=== PATIENT | male | born 1965 | race Caucasian/White ===

== ENCOUNTER 2018-06-20 12:51 | Observation (INO) ==
--- NOTE | 2018-06-20 13:24 | ED ---
HPI General Chief Complaint: Chest Pain Stated Complaint: HBP complaint/chest pain Time Seen by Provider: 06/20/18 13:07 Source: patient and RN notes reviewed Mode of arrival: ambulatory Limitations: no limitations History of Present Illness HPI narrative: 52-year-old male presents to the emergency department for evaluation of left-sided chest pain that started approximately 1 month ago, but has been worse in the past 2 weeks. He states it is constant, but worse with exertion, slightly alleviated with rest. He states in the left chest, radiates to the left side and left arm. Current pain is 3/10, dull. He also reports associated fatigue. Patient denies any associated shortness of breath. He has history of depression is on gabapentin. No other medical problems. He does not follow with a drum cleaner. He has no history of cardiac disease. He reports no recent stress test or cardiac catheterization. No recent surgery or travel. No leg edema. No hemoptysis. No history of DVT or PE. Moderate severity. Patient did take aspirin 81 mg this morning. MD complaint: Reports chest pain STEMI Alert: No Onset (ago): month(s) (1) Duration: intermittent Pain location: Reports left chest Severity: moderate Severity scale (1-10): 3 Quality: Reports aching and dull Pain radiation: Reports LUE Relieving factors: rest Exacerbating factors: exertion Context: Denies recent illness, recent surgery, recent immobilization, recent travel, trauma/injury, new medications and history of DVT/PE Associated symptoms: Denies nausea, vomiting, diaphoresis, dyspnea, sense of impending doom, syncope, palpitations, fever, cough and leg swelling Treatments prior to arrival chest pain: Reports aspirin Related Data Allergies Allergy/AdvReac Type Severity Reaction Status Date / Time No Known Allergies Allergy Verified 06/20/18 12:56 Review of Systems ROS: all other systems reviewed are negative PMFSH Medical History Medical History Patient denies medical problems (Acute) Social History Social History Substance History: No History of Abuse Second Hand Smoke Exposure: No Smoking Status: Never smoker How Often Do You Have a Drink Containing Alcohol: Never Recent Travel in [facility] within the Last 8 Weeks: No Recent Out of Country Travel within the Last 8 Weeks: No Immunization History Tetanus Immunization: <5 Years Exam Narrative Exam Narrative: GENERAL: Well-nourished, well-developed male patient, ambulatory. Afebrile SKIN: Focused skin assessment warm/dry. HEAD: Normocephalic. Atraumatic EYES: No scleral icterus. No injection or drainage. NECK: Supple, trachea midline. No JVD or lymphadenopathy. CARDIOVASCULAR: Regular rate and rhythm without murmurs, gallops, or rubs. Bilateral radial and pedal pulses are 2+ RESPIRATORY: Breath sounds equal bilaterally. No accessory muscle use. Lung sounds are clear to auscultation GASTROINTESTINAL: Abdomen soft, non-tender, nondistended. MUSCULOSKELETAL: No cyanosis, or edema. BACK: Nontender without obvious deformity. No CVA tenderness. Course Initial Documented Vital Signs Temperature 97.6 F 06/20/18 12:54 Pulse Rate 84 06/20/18 12:54 Respiratory Rate 20 06/20/18 12:54 Blood Pressure 182/117 H 06/20/18 12:54 Pulse Oximetry 100 06/20/18 12:54 Last Documented Vital Signs Temperature 97.6 F 06/20/18 12:54 Pulse Rate 82 06/20/18 13:08 Respiratory Rate 17 06/20/18 13:08 Blood Pressure 165/85 H 06/20/18 13:08 Pulse Oximetry 100 06/20/18 13:08 Medical Decision Making CORY Attestation CORY supervised visit: Yes Attestation: I, Dr. Ye, have reviewed the advance practice practitioner's documentation and am in agreement, met with the patient face to face, made the diagnosis, and the medical decision making was done by me. See her note for further details. This is a 52-year-old male with significant family history of cardiac disease who presents for evaluation of intermittent episodes of chest pain, palpitations , as well as notably elevated blood pressure today. Patient did have chest pain today, however states that after receiving sublingual nitroglycerin, not only did his blood pressure improved, but his chest pain improved. On my assessment the patient is resting comfortably and is in no acute distress. He denies paresthesias or motor deficits. No dyspnea. Vital signs are within normal limits. Distal pulses are brisk and equal bilaterally. His EKG shows no signs of ischemia. Chest x-ray shows no acute cardia pulmonary disease. Basic labs are unremarkable. Cardiac enzymes are negative. He will be admitted to the chest pain center for further cardiac evaluation. He is amenable to this plan. MDM Narrative Medical decision making narrative: 52-year-old male presents to the emergency department for evaluation of left-sided chest pain, onset 1 month ago. EKG shows sinus rhythm, heart rate 82, no acute ST changes. CBC, CMP, magnesium, CK , troponin, PTT, PT/INR, chest x-ray ordered and pending. Patient is given second aspirin 81 mg p.o. and nitro 0.4 mg sublingually. CBC shows no acute abnormality. CMP shows no acute abnormalities. Magnesium is 2.1. CK is 64. Troponin is less than 0.02. PTT is 28.2. PT/INR is 10.1/ 1.0. Chest x-ray is negative for acute process. Patient will be admitted to the chest pain center for further evaluation and workup. Medical Screen Exam Complete: Yes Emergency Medical Condition: Yes Differential Diagnosis Differential Diagnosis: ACS versus angina versus pneumonia versus pneumothorax versus muscle strain Lab Data Result diagrams: 06/20/18 13:15 06/20/18 13:15 Lab Results 06/20/18 06/20/18 06/20/18 Range/Units 13:15 13:15 13:15 WBC 5.3 (4.0-11.0) th/mm3 RBC 5.06 (4.50-5.90) mil/mm3 Hgb 16.2 (13.0-17.0) gm/dL Hct 47.7 (39.0-51.0) % MCV 94.3 (80.0-100.0) fL MCH 32.0 (27.0-34.0) pg MCHC 33.9 (32.0-36.0) % RDW 13.4 (11.6-17.2) % Plt Count 250 (150-450) th/mm3 MPV 8.5 (7.0-11.0) fL Neut % (Auto) 64.2 (16.0-70.0) % Lymph % (Auto) 23.9 (9.0-44.0) % [place] % (Auto) 11.1 H (0.0-8.0) % Eos % (Auto) 0.5 (0.0-4.0) % Baso % (Auto) 0.3 (0.0-2.0) % Neut # (Auto) 3.4 (1.8-7.7) th/mm3 Lymph # (Auto) 1.3 (1.0-4.8) th/mm3 [place] # (Auto) 0.6 (0.0-0.9) th/mm3 Eos # (Auto) 0.0 (0.0-0.4) th/mm3 Baso # (Auto) 0.0 (0.0-0.2) th/mm3 WBC Differential . Differential Comment Auto diff final PT 10.1 (9.8-11.6) sec INR 1.0 Ratio APTT 28.2 (23.4-31.7) sec Sodium 140 (136-145) meq/L Potassium 3.7 (3.5-5.1) meq/L Chloride 103 (98-107) meq/L Carbon Dioxide 28.8 (21.0-32.0) meq/L Anion Gap 8 (5-15) meq/L BUN 10 (7-18) mg/dL Creatinine 1.09 (0.60-1.30) mg/dL Estimated GFR 71 L (>89) mL/min Random Glucose 96 (74-106) mg/dL Calcium 8.8 (8.5-10.1) mg/dL Magnesium (1.5-2.5) mg/dL Total Bilirubin 0.3 (0.2-1.0) mg/dL AST 20 (15-37) U/L ALT 27 (12-78) U/L Alkaline Phosphatase 83 (45-117) U/L Total Creatine Kinase (39-308) U/L Troponin I Less than 0.02 L (0.02-0.05) ng/mL Total Protein 7.7 (6.4-8.2) g/dL Albumin 4.3 (3.4-5.0) g/dL //18 Range/Units 13:15 WBC (4.0-11.0) th/mm3 RBC (4.50-5.90) mil/mm3 Hgb (13.0-17.0) gm/dL Hct (39.0-51.0) % MCV (80.0-100.0) fL MCH (27.0-34.0) pg MCHC (32.0-36.0) % RDW (11.6-17.2) % Plt Count (150-450) th/mm3 MPV (7.0-11.0) fL Neut % (Auto) (16.0-70.0) % Lymph % (Auto) (9.0-44.0) % [place] % (Auto) (0.0-8.0) % Eos % (Auto) (0.0-4.0) % Baso % (Auto) (0.0-2.0) % Neut # (Auto) (1.8-7.7) th/mm3 Lymph # (Auto) (1.0-4.8) th/mm3 [place] # (Auto) (0.0-0.9) th/mm3 Eos # (Auto) (0.0-0.4) th/mm3 Baso # (Auto) (0.0-0.2) th/mm3 WBC Differential Differential Comment PT (9.8-11.6) sec INR Ratio APTT (23.4-31.7) sec Sodium (136-145) meq/L Potassium (3.5-5.1) meq/L Chloride (98-107) meq/L Carbon Dioxide (21.0-32.0) meq/L Anion Gap (5-15) meq/L BUN (7-18) mg/dL Creatinine (0.60-1.30) mg/dL Estimated GFR (>89) mL/min Random Glucose (74-106) mg/dL Calcium (8.5-10.1) mg/dL Magnesium 2.1 (1.5-2.5) mg/dL Total Bilirubin (0.2-1.0) mg/dL AST (15-37) U/L ALT (12-78) U/L Alkaline Phosphatase (45-117) U/L Total Creatine Kinase 64 (39-308) U/L Troponin I (0.02-0.05) ng/mL Total Protein (6.4-8.2) g/dL Albumin (3.4-5.0) g/dL Imaging Data Radiologist's impression: Chest X-Ray 06/20/18 13:17 CONCLUSION: Negative for acute process Discharge Plan Discharge Disposition Patient Disposition: ED Admit(ED Internal Use Only) Discharge Order Discharge Orders: ED Use Only Admit Order (Routine); Ordered 06/20/18 Ordered By: Claire Martinez Discharge Details Diagnosis: Chest pain Physicians Team ED Provider: Shayan Ye ED Midlevel Provider: Claire Martinez Primary Care Provider: Primary Care Lsia Angel Attending Provider: Juanito Han Status ED Status: Admitted Observation Patient
[2018-06-20 13:52] LABS: Baso % (Auto) 0.3 % (0.0-2.0); Eos % (Auto) 0.5 % (0.0-4.0); Hematocrit 47.7 % (39.0-51.0); Hemoglobin 16.2 gm/dL (13.0-17.0); Lymph # (Auto) 1.3 th/mm3 (1.0-4.8); Lymph % (Auto) 23.9 % (9.0-44.0); Mean Corpuscular HGB Conc 33.9 % (32.0-36.0); Mean Corpuscular Volume 94.3 fL (80.0-100.0); Mean Platelet Volume 8.5 fL (7.0-11.0); Mono # (Auto) 0.6 th/mm3 (0.0-0.9); Mono % (Auto) 11.1 % (0.0-8.0); Neut # (Auto) 3.4 th/mm3 (1.8-7.7); Neut % (Auto) 64.2 % (16.0-70.0); Platelet Count 250 th/mm3 (150-450); Red Blood Count 5.06 mil/mm3 (4.50-5.90); Red Cell Distribution Width 13.4 % (11.6-17.2); White Blood Count 5.3 th/mm3 (4.0-11.0)
[2018-06-20 14:00] LABS: Albumin 4.3 g/dL (3.4-5.0); Anion Gap 8 meq/L (5-15); Aspartate Aminotransferase 20 U/L (15-37); Blood Urea Nitrogen 10 mg/dL (7-18); Calcium 8.8 mg/dL (8.5-10.1); Carbon Dioxide 28.8 meq/L (21.0-32.0); Chloride 103 meq/L (98-107); Glomerular Filtration Rate 71 mL/min (>89); Glucose,Random 96 mg/dL (74-106); Potassium 3.7 meq/L (3.5-5.1); Sodium 140 meq/L (136-145)
[2018-06-20 14:01] LABS: Activated Partial Thrombo Time 28.2 sec (23.4-31.7); Alanine Aminotransferase 27 U/L (12-78); Magnesium 2.1 mg/dL (1.5-2.5)
--- NOTE | 2018-06-20 14:01 | XR ---
EXAM DATE: 06/20/2018 1:55 PM EST AGE/SEX: 52 years / Male INDICATIONS: Left side chest pain. CLINICAL DATA: This is the patient's initial encounter. Patient reports that signs and symptoms have been present for 1 month and indicates a pain score of 3/10. MEDICAL/SURGICAL HISTORY: None. None. COMPARISON: No prior exams available for comparison. FINDINGS: A single AP view of the chest demonstrates the lungs to be symmetrically aerated without evidence of mass, infiltrate or effusion. The cardiomediastinal contours are unremarkable. Osseous structures a re intact. CONCLUSION: Negative for acute process Electronically signed by: Missael Escobar MD Board Certified Radiologist 06/20/2018 2:00 PM EST
[2018-06-20 14:02] LABS: Prothrombin Time 10.1 sec (9.8-11.6)
[2018-06-20 14:03] LABS: Alkaline Phosphatase 83 U/L (45-117); Total Protein 7.7 g/dL (6.4-8.2)
--- NOTE | 2018-06-20 15:29 | P.HPCA ---
History of Present Illness Primary Care Physician: No Primary Care Physician Chief Complaint: Chest pain History of Present Illness: 52 year old male without significant medical history presents to ER for further evaluation of exertional chest pain. Onset few months. Reporting episodes are becoming more frequent and intense over the last 2 weeks. Location left anterior chest with radiation to left shoulder. Characterized as a tight, squeezing sensation. Associated symptoms include dyspnea. No associated symptoms of nausea, vomiting, or diaphoresis. Precipitating factors seem to be related to exertion. Duration often last hours, sometimes lasting all day. No relieving factors. No recent illness, fever, or injury. A family member encouraged him to go to local [place] station to have blood pressure checked. Reports blood pressure taken by EMT was 220/100 and was encouraged to go to ER for further evaluation. Past cardiac testing None Social history No known hypertension, hyperlipidemia, or diabetes. Lifelong non-smoker. No alcohol or recreational drug use. Family history Noncontributory for early onset cardiovascular disease. Brother required valve replacement due to endocarditis. Father age 49 cerebral aneurysm - Diagnosis (1) Chest pain of uncertain etiology (2) Hypertension (3) History of depression Review of Systems All other systems reviewed negative except as stated in HPI PMFSH - History History Provided By: Patient - Medical History Medical History: Medical History (Last Reviewed 06/20/18 @ 15:23 by COREY Lomas) Patient denies medical problems - Family History Family History: Family History (Last Updated 06/20/18 @ 15:23 by COREY Lomas) Other Cerebral aneurysm Endocarditis - Social History I have reviewed the patient's Social History: Yes - Tobacco History Second Hand Smoke Exposure: No Tobacco Use In Past 30 Days: No Smoking Status: Never smoker - Alcohol History How Often Do You Have a Drink Containing Alcohol: Never - Substance Use History Substance History: No History of Abuse - Travel History History of Recent Travel: No Recent Travel in the [place] Within the Last 8 Weeks: No Recent Travel Out of the Country Within the Last 8 Weeks: No - Immunization History Tetanus Immunization: <5 Years Medications and Allergies Active Medications: Active Medications Sodium Chloride (Ns Flush) 2 ml IV.FLUSH UNSCH PRN PRN Reason: FLUSH AFTER USING IV ACCESS Allergies Allergy/AdvReac Type Severity Reaction Status Date / Time No Known Allergies Allergy Verified 06/20/18 12:56 Home Medications Medication Instructions Recorded Confirmed Type aspirin 81 mg PO BID 06/20/18 06/20/18 History gabapentin 300 mg PO BID 06/20/18 06/20/18 History Exam Vital signs: Vital Signs 06/20/18 12:54 06/20/18 13:08 06/20/18 14:39 Temperature 97.6 F Pulse Rate 84 82 63 Respiratory Rate 20 17 18 Blood Pressure 182/117 H 165/85 H 129/67 Pulse Oximetry 100 100 100 Intake & Output 06/19/18 06/20/18 06/20/18 18:59 06:59 18:59 Weight 92.986 kg Narrative: GENERAL: Alert WN, WD, NAD, pleasant, male HEAD: NC, AT EYES: Sclera clear, conjunctiva without injection, pupils equal and round ENT: Mucous membranes pink and moist NECK: Supple, no masses, trachea midline CV: RRR, without murmur, rub, gallop, no JVD. RESP: Clear lungs throughout bilateral, no crackles, wheeze, rhonchi, symmetrical chest rise, nonlabored, able to speak in full sentences ABD: Soft, NT, ND, no masses, positive bowel tones EXT: Pulses +2x4, no dependent edema MS: Normal tone x4 extremities, nontender, no obvious deformities, full range of motion NEURO: Motor strength 5/5 PSYCH: A+O x3, flat affect, appropriate speech, mildly anxious mood, appropriate insight and judgment SKIN: Normal turgor, normal texture, no lesions, no rashes Results 06/20/18 13:15 06/20/18 13:15 Cardiac Enzymes 06/20/18 Range/Units 13:15 AST 20 (15-37) U/L Troponin I Less than 0.02 L (0.02-0.05) ng/mL Coagulation 06/20/18 Range/Units 13:15 PT 10.1 (9.8-11.6) sec APTT 28.2 (23.4-31.7) sec CBC 06/20/18 Range/Units 13:15 WBC 5.3 (4.0-11.0) th/mm3 RBC 5.06 (4.50-5.90) mil/mm3 Hgb 16.2 (13.0-17.0) gm/dL Hct 47.7 (39.0-51.0) % Plt Count 250 (150-450) th/mm3 Neut # (Auto) 3.4 (1.8-7.7) th/mm3 Lymph # (Auto) 1.3 (1.0-4.8) th/mm3 [place] # (Auto) 0.6 (0.0-0.9) th/mm3 Eos # (Auto) 0.0 (0.0-0.4) th/mm3 Baso # (Auto) 0.0 (0.0-0.2) th/mm3 Comprehensive Metabolic Panel 06/20/18 Range/Units 13:15 Sodium 140 (136-145) meq/L Potassium 3.7 (3.5-5.1) meq/L Chloride 103 (98-107) meq/L Carbon Dioxide 28.8 (21.0-32.0) meq/L BUN 10 (7-18) mg/dL Creatinine 1.09 (0.60-1.30) mg/dL Calcium 8.8 (8.5-10.1) mg/dL AST 20 (15-37) U/L ALT 27 (12-78) U/L Alkaline Phosphatase 83 (45-117) U/L Total Protein 7.7 (6.4-8.2) g/dL Albumin 4.3 (3.4-5.0) g/dL Intake and Output 06/20/18 06/20/18 06/20/18 06:59 14:59 22:59 Other: Weight 92.986 kg Patient Weight 06/21/18 06:59 Weight 92.986 kg - Imaging and Cardiology Imaging: Impressions Chest X-Ray 06/20/18 13:17 CONCLUSION: Negative for acute process EKG interpretations - EKG EKG results cardiology: sinus rhythm, normal axis, normal QRS, normal ST/T Caprini VTE Risk Assessment Caprini VTE Risk Assessment: No/Low Risk (score <= 1) Caprini Risk Assessment Model: Point Value = 1 Point Value = 2 Point Value = 3 Point Value = 5 Age 41-60 Minor surgery BMI > 25 kg/m2 Swollen legs Varicose veins or History of unexplained or recurrent spontaneous Oral contraceptives or hormone replacement Sepsis (< 1 month) Serious lung disease, including pneumonia (< 1 month) Abnormal pulmonary function Acute myocardial infarction Congestive heart failure (< 1 month) History of inflammatory bowel disease Medical patient at bed rest Age 61-74 Arthroscopic surgery Major open surgery (> 45 min) Laparoscopic surgery (> 45 min) Malignancy Confined to bed (> 72 hours) Immobilizing plaster cast Central venous access Age >= 75 History of VTE Family history of VTE Factor V Leiden Prothrombin [id number] Lupus anticoagulant Anticardiolipin antibodies Elevated serum homocysteine Heparin-induced thrombocytopenia Other congenital or acquired thrombophilia Stroke (< 1 month) Elective arthroplasty Hip, pelvis, or leg fracture Acute spinal cord injury (< 1 month) Prophylaxis Regimen: Total Risk Factor Score Risk Level Prophylaxis Regimen 0-1 Low Early ambulation 2 Moderate Order ONE of the following: *Sequential Compression Device (SCD) *Heparin 5000 units SQ BID 3-4 Higher Order ONE of the following medications: *Heparin 5000 units SQ TID *Enoxaparin/Lovenox 40 mg SQ daily (WT < 150 kg, CrCl > 30 mL/min) *Enoxaparin/Lovenox 30 mg SQ daily (WT < 150 kg, CrCl > 10-29 mL/min) *Enoxaparin/Lovenox 30 mg SQ BID (WT < 150 kg, CrCl > 30 mL/min) AND/OR *Sequential Compression Device (SCD) 5 or more Highest Order ONE of the following medications: *Heparin 5000 units SQ TID (Preferred with Epidurals) *Enoxaparin/Lovenox 40 mg SQ daily (WT < 150 kg, CrCl > 30 mL/min) *Enoxaparin/Lovenox 30 mg SQ daily (WT < 150 kg, CrCl > 10-29 mL/min) *Enoxaparin/Lovenox 30 mg SQ BID (WT < 150 kg, CrCl > 30 mL/min) AND *Sequential Compression Device (SCD) Assessment and Plan - Assessment (1) Chest pain of uncertain etiology Code(s): R07.89 - Other chest pain Status: Acute Plan: Admitted chest pain center. Seen and evaluated by Dr. Juanito Han. Rule out ACS with 2 sets of EKGs and cardiac enzymes followed by exercise cardiac testing. (2) Hypertension Code(s): I10 - Essential (primary) hypertension Status: Acute Plan: First two admission blood pressure moderately elevated, blood pressure since normalized. Continue to monitor. (3) History of depression Code(s): Z86.59 - Personal history of other mental and behavioral disorders Status: Chronic Plan: Continue gabapentin. (2) Hypertension Qualifiers: Hypertension type: unspecified Qualified Code(s): I10 - Essential (primary) hypertension
[2018-06-20 17:54] LABS: Creatine Kinase 70 U/L (39-308)
[2018-06-20] MEDS: Acetaminophen 500 MG Tablet PO PRN (21:06)
[2018-06-20] MEDS: Gabapentin 300 MG Capsule PO SCH (21:06)
--- NOTE | 2018-06-21 08:08 | P.PNCA ---
Subjective Interval history: No further chest pain episode. Offers no complaints. Medications and Allergies Active Medications: Active Medications Acetaminophen (Tylenol) 500 mg PO Q4H PRN PRN Reason: HEADACHE Last Admin: 06/20/18 21:06 Dose: 500 mg Gabapentin (Neurontin) 300 mg PO BID [facility] Last Admin: 06/20/18 21:06 Dose: 300 mg Nitroglycerin (Nitrostat Sl) 0.4 mg SL Q5M PRN PRN Reason: CHEST PAIN Ondansetron HCl (Zofran Inj) 4 mg IV.PUSH Q6H PRN PRN Reason: NAUSEA Sodium Chloride (Ns Flush) 2 ml IV.FLUSH BID [facility] Last Admin: 06/20/18 21:07 Dose: 2 ml Sodium Chloride (Ns Flush) 2 ml IV.FLUSH PRN PRN PRN Reason: FLUSH AFTER USING IV ACCESS Allergies Allergy/AdvReac Type Severity Reaction Status Date / Time No Known Allergies Allergy Verified 06/20/18 12:56 Home Medications Medication Instructions Recorded Confirmed Type aspirin 81 mg PO BID 06/20/18 06/20/18 History gabapentin 300 mg PO BID 06/20/18 06/20/18 History Physical Exam Vital signs: Vital Signs 06/20/18 12:54 06/20/18 13:08 06/20/18 13:17 Temperature 97.6 F Pulse Rate 84 82 Respiratory Rate 20 17 Blood Pressure 182/117 H 165/85 H Pulse Oximetry 100 100 100 06/20/18 14:39 06/20/18 15:45 06/20/18 16:00 Temperature 97.6 F Pulse Rate 63 75 63 Respiratory Rate 18 17 16 Blood Pressure 129/67 128/63 120/71 Pulse Oximetry 100 100 100 06/20/18 20:00 06/20/18 23:59 06/21/18 04:00 Temperature 96.8 F L 98.7 F 98.5 F Pulse Rate 64 58 L 58 L Respiratory Rate 18 18 18 Blood Pressure 110/73 112/60 113/61 Pulse Oximetry 100 100 96 06/21/18 07:58 Temperature Pulse Rate Respiratory Rate Blood Pressure Pulse Oximetry 99 Intake & Output 06/20/18 06/21/18 06/21/18 18:59 06:59 18:59 Intake Total 480 / 480 Balance 480 / 480 Weight 92.986 kg 92.3 kg Intake: Oral 480 / 480 Other: # Voids 3 Weight On Admission 92.986 kg - Constitutional no acute distress - Routine HEENT Exam Head: Present: normocephalic, atraumatic (old traumatic injury age 15, sc) ENT: Present: mucous membranes moist - Routine Chest/Breast/Axilla Exam Chest wall: Absent: tenderness - Routine Respiratory Exam Present: CTA bilaterally. Absent: rales, rhonchi, wheezes, crackles - Routine Cardiovascular Exam Present: RRR. Absent: murmur, gallop, rubs - Routine Abdominal Exam Present: soft, normoactive bowel sounds - Routine Skin Exam Present: intact - Routine Neurological Exam Present: alert, oriented X3 Results 06/20/18 13:15 06/20/18 13:15 Cardiac Enzymes 06/20/18 06/20/18 06/20/18 Range/Units 13:15 16:46 20:15 AST 20 (15-37) U/L Troponin I Less than 0.02 L Less than 0.02 L Less than 0.02 L (0.02-0.05) ng/mL Coagulation 06/20/18 Range/Units 13:15 PT 10.1 (9.8-11.6) sec APTT 28.2 (23.4-31.7) sec CBC 06/20/18 Range/Units 13:15 WBC 5.3 (4.0-11.0) th/mm3 RBC 5.06 (4.50-5.90) mil/mm3 Hgb 16.2 (13.0-17.0) gm/dL Hct 47.7 (39.0-51.0) % Plt Count 250 (150-450) th/mm3 Neut # (Auto) 3.4 (1.8-7.7) th/mm3 Lymph # (Auto) 1.3 (1.0-4.8) th/mm3 [place] # (Auto) 0.6 (0.0-0.9) th/mm3 Eos # (Auto) 0.0 (0.0-0.4) th/mm3 Baso # (Auto) 0.0 (0.0-0.2) th/mm3 Comprehensive Metabolic Panel 06/20/18 Range/Units 13:15 Sodium 140 (136-145) meq/L Potassium 3.7 (3.5-5.1) meq/L Chloride 103 (98-107) meq/L Carbon Dioxide 28.8 (21.0-32.0) meq/L BUN 10 (7-18) mg/dL Creatinine 1.09 (0.60-1.30) mg/dL Calcium 8.8 (8.5-10.1) mg/dL AST 20 (15-37) U/L ALT 27 (12-78) U/L Alkaline Phosphatase 83 (45-117) U/L Total Protein 7.7 (6.4-8.2) g/dL Albumin 4.3 (3.4-5.0) g/dL Intake and Output 06/20/18 06/21/18 06/21/18 22:59 06:59 14:59 Intake Total 480 / 480 Balance 480 / 480 Intake: Oral 480 / 480 Other: # Voids 3 Weight 92.986 kg 92.3 kg Weight On Admission 92.986 kg - Imaging and Cardiology Imaging: Impressions Chest X-Ray 06/20/18 13:17 CONCLUSION: Negative for acute process Assessment and Plan - Assessment (1) Chest pain of uncertain etiology Code(s): R07.89 - Other chest pain Status: Acute Plan: Monitored on telemetry overnight. Awaiting cardio input due to concerning chest discomfort during exercise cardiac testing. Instructed to remain NPO until seen by global compensation manager drain technician. (2) Hypertension Code(s): I10 - Essential (primary) hypertension Status: Acute Plan: No further elevated blood pressures since admission. Continue to monitor. (3) History of depression Code(s): Z86.59 - Personal history of other mental and behavioral disorders Status: Chronic Plan: Continue gabapentin. (2) Hypertension Qualifiers: Hypertension type: unspecified Qualified Code(s): I10 - Essential (primary) hypertension
[2018-06-21 09:24] LABS: Chol/HDL Ratio 3.55 Ratio; HDL Cholesterol 48.9 mg/dL (40.0-60.0)
[2018-06-21] MEDS: Gabapentin 300 MG Capsule PO SCH ×2 (09:59→22:17)
[2018-06-21] MEDS: Acetaminophen 500 MG Tablet PO PRN (09:59)
--- NOTE | 2018-06-21 10:28 | ECG ---
Date Performed: 06/20/2018 Time Performed: 13:11:52 PTAGE: 52 years EKG: Sinus rhythm POSSIBLE RIGHT VENTRICULAR CONDUCTION DELAY BORDERLINE ECG NO PREVIOUS TRACING DOCTOR: Juanito Han Interpretating Date/Time 06/21/2018 10:27:20
--- NOTE | 2018-06-21 12:09 | ECG ---
Date Performed: 06/20/2018 Time Performed: 20:55:25 PTAGE: 52 years EKG: SINUS BRADYCARDIA NONSPECIFIC T-WAVE ABNORMALITY BORDERLINE ECG No significant change NO PREVIOUS TRACING DOCTOR: Michael Whitlock Interpretating Date/Time 06/21/2018 12:07:28
--- NOTE | 2018-06-21 12:09 | ECG ---
Date Performed: 06/20/2018 Time Performed: 17:31:08 PTAGE: 52 years EKG: SINUS BRADYCARDIA INCOMPLETE RIGHT BUNDLE BRANCH BLOCK NONSPECIFIC T-WAVE ABNORMALITY ANNADE KENNETH ECG No significant change PREVIOUS TRACING : 06/20/2018 13.11 DOCTOR: Michael Whitlock Interpretating Date/Time 06/21/2018 12:08:26
--- NOTE | 2018-06-21 12:10 | TR ---
Date Performed: 06/20/2018 Time Performed: 18:13:39 DOCTOR: Michael Whitlock DRUG LIST: CLINICAL HISTORY: CHEST PAIN REASON FOR TEST: Chest pain REASON FOR ENDING: OBSERVATION: CONCLUSION: Ford protocol attempted, stopped sec to reported reprod chest discomfort combined w ith anterior lateral t wave inversion during chest discomfort. Suboptimal testing. Chest discomfort r esolved within 2 minutes into recovery. T wave inversion resolved within 1 minute into recovery. COMMENTS: Questionably positive test, further evaluation recommended
--- NOTE | 2018-06-21 14:04 | P.CONIM ---
History of Present Illness Primary Care Provider: No Primary Care Physician Did at the bedside. Events leading to hospitalization reviewed in detail. Currently patient denies active chest pain but does say over the last few months he has been experiencing left-sided chest pain similar to pressure on his chest on and off. No palpitations at this moment, no loss of consciousness. No diaphoresis endorsed at the time of evaluation. Symptoms are exacerbated by exertion. Patient with treadmill test at which point symptoms were reproduced. Review of Systems Review of Systems: all other systems reviewed are negative [facility] Medical History Medical History Patient denies medical problems (Acute) Family History Family History Father Cerebral aneurysm Brother Endocarditis Social History Social History Substance History: No History of Abuse Second Hand Smoke Exposure: No Smoking Status: Never smoker How Often Do You Have a Drink Containing Alcohol: Never Hx Recent Travel: No Recent Travel in [facility] within the Last 8 Weeks: No Recent Out of Country Travel within the Last 8 Weeks: No Immunization History Tetanus Immunization: <5 Years Hx Influenza Vaccine This Season: No Medications and Allergies Allergies Allergy/AdvReac Type Severity Reaction Status Date / Time No Known Allergies Allergy Verified 06/20/18 12:56 Home Medications Medication Instructions Recorded Confirmed Type aspirin 81 mg PO BID 06/20/18 06/20/18 History gabapentin 300 mg PO BID 06/20/18 06/20/18 History Active Medications: Active Medications Acetaminophen (Tylenol) 500 mg PO Q4H PRN PRN Reason: HEADACHE Last Admin: 06/21/18 09:59 Dose: 500 mg Gabapentin (Neurontin) 300 mg PO BID [facility] Last Admin: 06/21/18 09:59 Dose: 300 mg Nitroglycerin (Nitrostat Sl) 0.4 mg SL Q5M PRN PRN Reason: CHEST PAIN Ondansetron HCl (Zofran Inj) 4 mg IV.PUSH Q6H PRN PRN Reason: NAUSEA Sodium Chloride (Ns Flush) 2 ml IV.FLUSH BID [facility] Last Admin: 06/21/18 09:59 Dose: 2 ml Sodium Chloride (Ns Flush) 2 ml IV.FLUSH PRN PRN PRN Reason: FLUSH AFTER USING IV ACCESS Physical Exam Vital signs: Last Vital Signs Temp 98.2 F 06/21/18 12:00 Pulse 69 06/21/18 12:00 Resp 16 06/21/18 12:00 BP 126/81 06/21/18 12:00 Pulse Ox 92 L 06/21/18 12:00 Intake & Output 06/19/18 06/20/18 06/21/18 06/22/18 06:59 06:59 06:59 06:59 Intake Total 480 / 480 Balance 480 / 480 Weight 92.3 kg general: No acute distress, conversational HEENT: EOMI Cardiovascular: S1/S2. No murmur rub or gallop noted Respiratory: Clear to auscultation anteriorly and posteriorly Gastrointestinal: Soft, nontender, nondistended, no guarding or rebound Extremity: No lower extremity edema or calf tenderness Results Labs CBC & Chem 7: 06/20/18 13:15 06/20/18 13:15 Imaging Impressions Chest X-Ray 06/20/18 13:17 CONCLUSION: Negative for acute process ABG Impressions Chest X-Ray 06/20/18 13:17 CONCLUSION: Negative for acute process Assessment and Plan (1) Chest pain of uncertain etiology: Code(s): R07.89 - Other chest pain Status: Acute (2) Hypertension: Code(s): I10 - Essential (primary) hypertension Status: Acute (3) History of depression: Code(s): Z86.59 - Personal history of other mental and behavioral disorders Status: Chronic (4) Unstable angina: Code(s): I20.0 - Unstable angina Status: Acute Plan Patient is a young 52-year-old male with no significant past medical history presenting with exertional chest pain with T wave changes on treadmill testing concerning for unstable angina Cardiology: Chest pain Cardiology consulted and recommendations to be appreciated via EMR Initiate beta-becky metoprolol 25 mg twice daily, aspirin 81 mg daily, high- dose statin therapy Without active symptoms at this time will defer heparin after discussion with cardiology. If patient develops symptoms recurrent will heparinize. Plan for catheterization Saturday 06/23. N.p.o. midnight on 06/22 Echo CODE STATUS: Full code DVT prophylaxis: Heparin subcu Disposition: MedSurg unit. Diet: Cardiac _ (1) Hypertension Qualifiers: Hypertension type: unspecified Qualified Code(s): I10 - Essential (primary) hypertension
[2018-06-21] MEDS ORDERED: Erythromycin 0.5% Opth Oint 3.5 GM Tube EACH EYE SCH (15:00)
[2018-06-21] MEDS: Metoprolol Tartrate 25 MG Tablet PO SCH ×2 (16:28→22:17)
[2018-06-21] MEDS: Heparin - SQ 10,000 UNITS/ML Vial SQ SCH ×2 (16:28→22:18)
--- NOTE | 2018-06-21 17:52 | MB ---
cc: Vimal Schilling MD DATE: 06/21/2018 HISTORY OF PRESENT ILLNESS: Mr. Romo is a 52-year-old white male with no previous cardiac history. He presented with left parasternal chest discomfort, increased with exertion. He underwent an exercise treadmill test and had pain and EKG changes during the test. He has had increased blood pressure. He complains of shortness of breath but no PND, orthopnea, or peripheral edema. PAST MEDICAL HISTORY: Negative for hypertension, dyslipidemia, diabetes mellitus, coronary artery disease, or CVA. MEDICATIONS: None. ALLERGIES: NONE. SOCIAL HISTORY: History of smoking and alcohol. He works in IT. FAMILY HISTORY: Positive for endocarditis in his brother and cerebral aneurysm in his father. REVIEW OF SYSTEMS: Otherwise negative. PHYSICAL EXAMINATION: VITAL SIGNS: Blood pressure 115/73, pulse 71 and regular. HEENT: Negative, 2+ carotid upstrokes, no bruits. LUNGS: Clear. HEART: Regular with no murmur, gallop or rub. ABDOMEN: Soft. No bruits. EXTREMITIES: Without edema. 2+ distal pulses. NEUROLOGIC: Nonfocal. LABORATORY DATA: EKG was reviewed and showed normal sinus rhythm, RSR prime in V2. No acute changes. LABORATORY DATA: Hemoglobin 16.2, potassium 3.7, creatinine 1.1. Troponin negative x3. LDL 104, HDL 49. FINDINGS: 1. Angina pectoris. 2. Abnormal exercise treadmill test. 3. Hypertension. DISPOSITION: Mr. Romo will be scheduled for cardiac catheterization and coronary intervention on Saturday if necessary. He understands the risks and benefits, and wishes to proceed. We will continue therapy with aspirin, beta becky, nitrates and high-dose statin. Vimal Schilling MD OQ/ct/rr , 02:37 PM , 02:44 PM MTDD
[2018-06-22] MEDS: Heparin - SQ 10,000 UNITS/ML Vial SQ SCH ×3 (05:39→22:15)
[2018-06-22] MEDS: Metoprolol Tartrate 25 MG Tablet PO SCH ×2 (09:11→20:29)
[2018-06-22] MEDS: Gabapentin 300 MG Capsule PO SCH ×2 (09:11→20:28)
[2018-06-22 09:34] LABS: Hematocrit 44.8 % (39.0-51.0); Hemoglobin 15.3 gm/dL (13.0-17.0); Mean Corpuscular HGB Conc 34.1 % (32.0-36.0); Mean Corpuscular Hemoglobin 32.4 pg (27.0-34.0); Mean Corpuscular Volume 94.9 fL (80.0-100.0); Mean Platelet Volume 8.2 fL (7.0-11.0); Platelet Count 223 th/mm3 (150-450); Red Blood Count 4.71 mil/mm3 (4.50-5.90); Red Cell Distribution Width 13.1 % (11.6-17.2); White Blood Count 5.1 th/mm3 (4.0-11.0)
[2018-06-22 09:40] LABS: Prothrombin Time 10.6 sec (9.8-11.6)
[2018-06-22 09:57] LABS: Calcium 8.8 mg/dL (8.5-10.1); Carbon Dioxide 28.9 meq/L (21.0-32.0)
--- NOTE | 2018-06-22 10:28 | P.PNIM ---
Subjective Interval history: Patient seen and examined this morning at the bedside no acute overnight events denied active chest pain, palpitations, diaphoresis, nausea, or vomiting to me this morning ambulatory without issue Physical Exam Vital signs: Last Vital Signs Temp 98.6 F 06/22/18 07:37 Pulse 71 06/22/18 07:37 Resp 20 06/22/18 07:37 BP 119/74 06/22/18 07:37 Pulse Ox 99 06/22/18 08:48 Intake & Output 06/20/18 06/21/18 06/22/18 06/23/18 06:59 06:59 06:59 06:59 Intake Total 480 / 480 750 / 750 Balance 480 / 480 750 / 750 Weight 92.3 kg general: nad, conversational heent: eomi cvs: s1/s2. no appreciable murmur resp: cta bilaterally gi: soft, non tender, non distended, no guarding or rebound ext: no edema or calf tenderness Results Labs CBC & Chem 7: 06/22/18 08:52 06/22/18 08:52 Assessment and Plan (1) Chest pain of uncertain etiology: Code(s): R07.89 - Other chest pain Status: Acute (2) Hypertension: Code(s): I10 - Essential (primary) hypertension Status: Acute (3) History of depression: Code(s): Z86.59 - Personal history of other mental and behavioral disorders Status: Chronic (4) Unstable angina: Code(s): I20.0 - Unstable angina Status: Acute Plan Patient is a young 52-year-old male with no significant past medical history presenting with exertional chest pain with T wave changes on treadmill testing concerning for unstable angina Cardiology: Chest pain Cardiology consulted and recommendations noted continue beta-becky metoprolol 25 mg twice daily, aspirin 81 mg daily, high- dose statin therapy Without active symptoms at this time will defer heparin after discussion with cardiology. If patient develops symptoms recurrent will heparinize. Plan for catheterization Saturday 06/23. N.p.o. midnight on 06/22 Echo - PENDING to r.o valvular pathology CODE STATUS: Full code DVT prophylaxis: Heparin subcu Disposition: MedSurg unit. Diet: Cardiac Progress Note: Quality VTE Deep Vein Thrombosis/Pulmonary Embolism Present on Admission: No _ (1) Hypertension Qualifiers: Hypertension type: unspecified Qualified Code(s): I10 - Essential (primary) hypertension
[2018-06-22 13:37] LABS: Hemoglobin A1c 5.4 % (4.3-6.0)
--- NOTE | 2018-06-22 14:05 | P.PNCA ---
Subjective Interval history: Patient denies any CP, pressure, palpitations, dizziness, edema or SOB. Medications and Allergies Allergies Allergy/AdvReac Type Severity Reaction Status Date / Time No Known Allergies Allergy Verified 06/20/18 12:56 Home Medications Medication Instructions Recorded Confirmed Type aspirin 81 mg PO BID 06/20/18 06/20/18 History gabapentin 300 mg PO BID 06/20/18 06/20/18 History Active Medications: Active Medications Acetaminophen (Tylenol) 500 mg PO Q4H PRN PRN Reason: HEADACHE Last Admin: 06/21/18 09:59 Dose: 500 mg Aspirin (Ecotrin) 81 mg PO DAILY [facility] Last Admin: 06/22/18 09:11 Dose: 81 mg Atorvastatin Calcium (Lipitor) 80 mg PO HS [facility] Last Admin: 06/21/18 22:17 Dose: 80 mg Erythromycin (Ilotycin 0.5% Opth Oint) 1 applicatio EACH EYE ONCE [facility] Stop: 06/24/18 14:59 Gabapentin (Neurontin) 300 mg PO BID [facility] Last Admin: 06/22/18 09:11 Dose: 300 mg Heparin Sodium (Porcine) (Heparin Inj) 5,000 units SQ Q8HR [facility] Last Admin: 06/22/18 05:39 Dose: 5,000 units Metoprolol Tartrate (Lopressor) 25 mg PO BID [facility] Last Admin: 06/22/18 09:11 Dose: 25 mg Nitroglycerin (Nitrostat Sl) 0.4 mg SL Q5M PRN PRN Reason: CHEST PAIN Ondansetron HCl (Zofran Inj) 4 mg IV.PUSH Q6H PRN PRN Reason: NAUSEA Sodium Chloride (Ns Flush) 2 ml IV.FLUSH BID [facility] Last Admin: 06/22/18 09:11 Dose: 2 ml Sodium Chloride (Ns Flush) 2 ml IV.FLUSH PRN PRN PRN Reason: FLUSH AFTER USING IV ACCESS Physical Exam Vital signs: Vital Signs 06/21/18 16:00 06/21/18 20:00 06/22/18 07:37 Temperature 98.1 F 98.1 F 98.6 F Pulse Rate 79 61 71 Respiratory Rate 16 17 20 Blood Pressure 133/82 126/86 119/74 Pulse Oximetry 96 95 97 06/22/18 08:48 06/22/18 11:27 Temperature 98.6 F Pulse Rate 65 Respiratory Rate 20 Blood Pressure 148/83 H Pulse Oximetry 99 97 Intake & Output 06/21/18 06/22/18 06/22/18 18:59 06:59 18:59 Intake Total 750 / 750 Balance 750 / 750 Intake: Oral 750 / 750 Other: # Voids 2 2 - Constitutional no acute distress - Routine HEENT Exam Head: Present: normocephalic Eye: Present: PERRL ENT: Present: mucous membranes moist - Routine Neck Exam Present: full ROM - Routine Respiratory Exam Present: CTA bilaterally - Routine Cardiovascular Exam Present: S1, S2. Absent: murmur, gallop, rubs - Routine Abdominal Exam Present: normoactive bowel sounds - Routine Extremities Exam Present: full ROM, pulses intact, normal capillary refill. Absent: cyanosis, clubbing, edema - Routine Skin Exam Present: intact - Routine Neurological Exam Present: oriented X3 - Detailed Neurological Exam: Coma Scale Eye Opening: Spontaneous Verbal Response: Oriented Motor Response: Obey commands [place] Coma Scale Total: 15 - Routine Psychiatric Exam Present: normal affect Results 06/22/18 08:52 06/22/18 08:52 Cardiac Enzymes 06/20/18 06/20/18 06/20/18 Range/Units 13:15 16:46 20:15 AST 20 (15-37) U/L Troponin I Less than 0.02 L Less than 0.02 L Less than 0.02 L (0.02-0.05) ng/mL Coagulation 06/20/18 06/22/18 Range/Units 13:15 08:52 PT 10.1 10.6 (9.8-11.6) sec APTT 28.2 (23.4-31.7) sec Lipids 06/21/18 Range/Units 07:07 Triglycerides 104 (42-150) mg/dL Cholesterol 174 (120-200) mg/dL HDL Cholesterol 48.9 (40.0-60.0) mg/dL Cholesterol/HDL Ratio 3.55 Ratio CBC 06/22/18 Range/Units 08:52 WBC 5.1 (4.0-11.0) th/mm3 RBC 4.71 (4.50-5.90) mil/mm3 Hgb 15.3 (13.0-17.0) gm/dL Hct 44.8 (39.0-51.0) % Plt Count 223 (150-450) th/mm3 Comprehensive Metabolic Panel 06/20/18 06/22/18 Range/Units 13:15 08:52 Sodium 140 139 (136-145) meq/L Potassium 3.7 4.0 (3.5-5.1) meq/L Chloride 103 104 (98-107) meq/L Carbon Dioxide 28.8 28.9 (21.0-32.0) meq/L BUN 10 15 (7-18) mg/dL Creatinine 1.09 1.04 (0.60-1.30) mg/dL Calcium 8.8 8.8 (8.5-10.1) mg/dL AST 20 (15-37) U/L ALT 27 (12-78) U/L Alkaline Phosphatase 83 (45-117) U/L Total Protein 7.7 (6.4-8.2) g/dL Albumin 4.3 (3.4-5.0) g/dL Intake and Output 06/21/18 06/22/18 06/22/18 22:59 06:59 14:59 Intake Total 750 / 750 Balance 750 / 750 Intake: Oral 750 / 750 Other: # Voids 2 2 - Imaging and Cardiology Imaging: Impressions Chest X-Ray 06/20/18 13:17 CONCLUSION: Negative for acute process Assessment and Plan - Assessment (1) Chest pain Code(s): R07.9 - Chest pain, unspecified Status: Acute (2) Hypertension Code(s): I10 - Essential (primary) hypertension Status: Acute (3) Unstable angina Code(s): I20.0 - Unstable angina Status: Acute (4) History of depression Code(s): Z86.59 - Personal history of other mental and behavioral disorders Status: Chronic (5) Abnormal stress ECG with treadmill Code(s): R94.39 - Abnormal result of other cardiovascular function study Status: Acute - Plan Patient is scheduled for a cardiac catheterization tomorrow. NPO after midnight. Have consent for cardiac catheterization with angioplasty and possible stent placement, signed and placed on chart. Risk factors associated with catheterization include but not limited to: bleeding and/or infection at the insertion site, damage to the coronary arteries , acute kidney injury, heart attack, stroke and/or possible . The risk factors where discussed in detail with the patient, he verbalized understanding and wishes to proceed. We will continue to monitor patient during hospitalization. The patient was seen and evaluated by Dr. Schilling who participated in care, management and decision making. - Attending Attestation Patient seen and examined. I reviewed and agree with the evaluation and plan as presented. Cath/poss PCI tomorrow. (1) Chest pain Qualifiers: Chest pain type: unspecified Qualified Code(s): R07.9 - Chest pain, unspecified (2) Hypertension Qualifiers: Hypertension type: unspecified Qualified Code(s): I10 - Essential (primary) hypertension
--- NOTE | 2018-06-22 14:58 | ECHRPT ---
Indication: SHORTNESS OF BREATH CONCLUSIONS The left ventricular systolic function is normal with an estimated ejection fraction in the range of 60-65%. Normal left ventricular size. Wall thickness is normal. No regional wall motion abnormalities are present. BP: / HR: Rhythm: Sinus MEASUREMENTS (Male / Female) Normal Values Technical Quality:Excellent 2D ECHO LV Diastolic Diameter PLAX 3.8 cm 4.2 - 5.9 / 3.9 - 5.3 cm LV Systolic Diameter PLAX 2.8 cm IVS Diastolic Thickness 1.1 cm 0.6 - 1.0 / 0.6 - 0.9 cm LVPW Diastolic Thickness 1.1 cm 0.6 - 1.0 / 0.6 - 0.9 cm LV Relative Wall Thickness 0.6 LVOT Diameter 2.1 cm LA Systolic Diameter LX 2.5 cm 3.0 - 4.0 / 2.7 - 3.8 cm LV Ejection Fraction MOD 4C 65.8 % LV Ejection Fraction 4C AL 65.6 % M-MODE Aortic Root Diameter MM 1.6 cm LA Systolic Diameter MM 2.8 cm LA Ao Ratio MM 1.8 AV Cusp Separation MM 1.9 cm DOPPLER MV Area PHT 4.5 cm Mitral E Point Velocity 56.8 cm/s Mitral A Point Velocity 54.3 cm/s Mitral E to A Ratio 1.0 TR Peak Velocity 197.0 cm/s TR Peak Gradient 15.5 mmHg Right Atrial Pressure 10.0 mmHg Pulmonary Artery Systolic Pressu 25.5 mmHg Right Ventricular Systolic Press 25.5 mmHg PV Peak Velocity 93.7 cm/s PV Peak Gradient 3.5 mmHg FINDINGS LEFT VENTRICLE The left ventricular systolic function is normal with an estimated ejection fraction in the range of 60-65%. Normal left ventricular size. Wall thickness is normal. No regional wall motion abnormalities are present. RIGHT VENTRICLE Normal right ventricular size and systolic function. LEFT ATRIUM The left atrial size is normal. RIGHT ATRIUM The right atrial size is normal. ATRIAL SEPTUM Normal atrial septal thickness without atrial level shunting by limited color doppler interrogation. AORTA The aortic root and proximal ascending aorta are normal in size on limited imaging. MITRAL VALVE Structurally normal mitral valve. No mitral valve stenosis or regurgitation. AORTIC VALVE Trileaflet aortic valve. No aortic valve stenosis or regurgitation. TRICUSPID VALVE Structurally normal tricuspid valve. No tricuspid valve stenosis or regurgitation. PULMONARY VALVE No pulmonary valve regurgitation or stenosis. VESSELS The inferior vena cava is normal in size. PERICARDIUM No pericardial effusion. Dimitry A. Horenstein MD (Electronically Signed) Final Date:22 June 2018 14:57
[2018-06-22] MEDS: Acetaminophen 500 MG Tablet PO PRN (20:27)
[2018-06-23] MEDS: Heparin - SQ 10,000 UNITS/ML Vial SQ SCH (05:17)
[2018-06-23 07:05] LABS: Hematocrit 45.5 % (39.0-51.0); Hemoglobin 15.6 gm/dL (13.0-17.0); Mean Corpuscular HGB Conc 34.3 % (32.0-36.0); Mean Corpuscular Hemoglobin 32.4 pg (27.0-34.0); Mean Corpuscular Volume 94.3 fL (80.0-100.0); Mean Platelet Volume 8.4 fL (7.0-11.0); Platelet Count 231 th/mm3 (150-450); Red Blood Count 4.82 mil/mm3 (4.50-5.90); Red Cell Distribution Width 13.1 % (11.6-17.2); White Blood Count 5.3 th/mm3 (4.0-11.0)
[2018-06-23 07:06] LABS: Prothrombin Time 10.4 sec (9.8-11.6)
[2018-06-23 07:16] LABS: Calcium 8.9 mg/dL (8.5-10.1); Carbon Dioxide 33.3 meq/L (21.0-32.0); Magnesium 2.2 mg/dL (1.5-2.5); Potassium 4.1 meq/L (3.5-5.1)
[2018-06-23 08:04] VITALS: BP 118/67; RESP 16; TEMP 97.6
[2018-06-23] MEDS: Metoprolol Tartrate 25 MG Tablet PO SCH (10:13)
[2018-06-23] MEDS: Gabapentin 300 MG Capsule PO SCH (10:13)
--- NOTE | 2018-06-23 13:56 | P.PNIM ---
Subjective Interval history: Patient seen and evaluated this morning at bedside. No active chest pain at this time as patient is feeling better. Currently awaiting catheterization by cardiology Physical Exam Vital signs: Last Vital Signs Temp 97.6 F 06/23/18 08:00 Pulse 65 06/23/18 08:00 Resp 16 06/23/18 08:00 BP 118/67 06/23/18 08:00 Pulse Ox 98 06/23/18 09:57 Intake & Output 06/21/18 06/22/18 06/23/18 06/24/18 06:59 06:59 06:59 06:59 Intake Total 480 / 480 750 / 750 1560 / 1560 Balance 480 / 480 750 / 750 1560 / 1560 weight 92.3 kg General: No acute distress, conversational Cardiovascular: S1/S2. No murmurs rubs or gallops appreciated Respiratory: Clear to auscultation anteriorly posteriorly. No intercostal muscle use Gastroenterology: Soft, nontender, nondistended, no guarding or rebound appreciated Extremity: No lower extremity edema no calf tenderness. 2+ bilateral radial pulse Results Labs CBC & Chem 7: 06/23/18 06:14 06/23/18 06:14 Assessment and Plan (1) Chest pain: Code(s): R07.9 - Chest pain, unspecified Status: Acute (2) Hypertension: Code(s): I10 - Essential (primary) hypertension Status: Acute (3) Unstable angina: Code(s): I20.0 - Unstable angina Status: Acute (4) History of depression: Code(s): Z86.59 - Personal history of other mental and behavioral disorders Status: Chronic (5) Abnormal stress ECG with treadmill: Code(s): R94.39 - Abnormal result of other cardiovascular function study Status: Acute Plan Patient is a young 52-year-old male with no significant past medical history presenting with exertional chest pain with T wave changes on treadmill testing concerning for unstable angina Cardiology: Chest pain Cardiology consulted and recommendations noted continue beta-becky metoprolol 25 mg twice daily, aspirin 81 mg daily, high- dose statin therapy Plan for catheterization today 06/23 Echo -normal. No abnormal findings CODE STATUS: Full code DVT prophylaxis: Heparin subcu Disposition: MedSurg unit. Diet: Cardiac Progress Note: Quality VTE Deep Vein Thrombosis/Pulmonary Embolism Present on Admission: No _ (1) Chest pain Qualifiers: Chest pain type: unspecified Ischemic chest pain type: Qualified Code(s): R07.9 - Chest pain, unspecified (2) Hypertension Qualifiers: Hypertension type: unspecified Qualified Code(s): I10 - Essential (primary) hypertension
[2018-06-23] MEDS ORDERED: Lidocaine PF 1% Inj 30 ML Vial ONE (14:26)
[2018-06-23] MEDS ORDERED: Heparin/NS PF Inj 1,000 ML ONE (14:26)
[2018-06-23] MEDS ORDERED: fentaNYL Citrate Inj 100 MCG/2 ML Ampul ONE (14:27)
[2018-06-23] MEDS ORDERED: Iohexol 350 MG/ML 100 ML Vial (for Cath Lab) IVCONTRAST ONE (14:28)
[2018-06-23 14:46] VITALS: PULSE 69
--- NOTE | 2018-06-23 15:11 | CATHPROC ---
Wander HIS Report Study Information Study Number Admission Scheduled Start Study Start [id number] Jun 20 2018 2:27PM 06/23/2018 Jun 23 2018 2:12PM Philip Service Cardiac Catheterization Admit Source Facility Department Emergency department [facility] - [facility] Salvage Physician and Clinical Staff Initial Vimal Ochoa Library Science Instructor Maria Ines Joy,CLARA Other cathlab, cathlab Recorder Willem Kaplan RCIS(BS) Susi Lake RCIS TECH2 Procedures Performed Procedure Location (Site) Vessel Name Angiogram LV LV Ventricle Coronary Angiograms LCA Left Coronary Coronary Angiograms RCA Right Coronary L Heart Cath Equipment Time [place] [employer] Operator Description Size Mfg Part Number Used/Scraped TRANSDUCER, TRFacet SolutionsAVE [id number] 14:22 BERMUDEZ VALDIVIA * Used W/STOCKCOCK *[id number] 700-500DX 15:03 [place] MEDICAL VASCADE, FR5 CLOSURE SYSTEM FR 5 Used *[id number] 534-548T *[id number] 534-520T *[id number] 534-552S *[id number] 14:22 [employer] BLANKET,WARM AIR CCL * Used *[id number] 14:22 [employer] PACK, CCL CUSTOM * Used *[id number] 14:22 Design A PACER PEN, SKIN DUAL W/ RULER * Used *[id number] 14:22 [employer] WIRE, 3MMJ .035 180CM 180CM Used *[id number] PROBE COVER, STERILE [id number] 14:22 [employer] MEDICAL * Used ULTRASOUND W/ GEL *[id number] 14:22 NAMIC MANIFOLD, 4 PORT * Used *[id number] TUBING, 72" PRESSURE [id number] 14:22 NAMIC Used INJECTION (ASSESSMENT CLINICIAN) [id number] 14:22 NAMIC TUBING, HIGH PRESSURE 48" 48" Used *[id number] 14:22 [employer] OMNIPAQUE, 350 MG, 150ML 150ML [id number] Used 14:54 [employer] OMNIPAQUE, 350 MG, 50ML 50ML [id number] Used [id number] 14:22 TERUMO MEDICAL SHEATH, FR5 TERUMO (10CM) FR 5 Used *[id number] History: Current Medications Medication Dosage/Unit Route Frequency Last Date/Time Taken Statins (any) LOPRESSOR ASA History: Allergies Allergy Reaction No Known Allergies History: Risk Factors Family History of Hypertension Dyslipidemia Previous AL Previous Heart Failure Premature CAD Yes No Yes No No Prior Valve Prior PCI Prior CABG Surgery No No No Cerebrovascular Peripheral Artery Chronic Lung On Dialysis Diabetes Disease Disease Disease No No No No No History: Symptoms/Diagnosis Selection Items Chest pain History: Stress Tests Stress or Imaging Studies Performed Yes Standard Exercise Stress Test No Stress Echo No Stress Test SPECT Stress Test SPECT Result Stress Test SPECT Ischemia Risk/Extent Yes Positive Intermediate Stress Test CMR No Cardiac CTA Coronary Calcium Score No No History: Other Disease Selection Items HTN History: Other Current Smoker No Labs Hgb (g/dl) Hct (%) WBC (l/cumm) Platelets (thousands) 11.60-17.00 35.00-51.00 4.00-11.00 150.00-450.00 15.6 45.5 5.3 231 Glucose (mg/dl) BUN (mg/dl) Creatinine (mg/dl) BUN:Creatinine (1:x) 74.00-106.00 7.00-18.00 0.50-1.30 10.00-20.00 97 15 1.1 13.6 Na (meq/l) K (meq/l) 136.00-145.00 3.50-5.10 141 4.1 INR (PTT:PT) 0.90-1.10 1 Troponin I (ng/ml) CPK (u/l) 0.02-0.05 26.00-308.00 0.02 70 Medication Medication Total Dose (Bolus/Oral) Medication Total Dosage/Unit 1% XYLOCAINE 20 mL FENTANYL 100 mcg VERSED 4 mg Medications (Bolus/Oral) Medication Time Given Dosage/Unit Administered By Reason VERSED 06/23/2018 2:31:04 PM 2 mg Hesher, Maria Ines 2 mg VERSED given in lab by Maria Ines Joy RN in Right Antecubital via Peripheral IV. Ordered by Vimal Turner. FENTANYL 06/23/2018 2:32:12 PM 50 mcg Hesher, Maria Ines 50 mcg FENTANYL given in lab by Maria Ines Joy, CLARA in Right Antecubital via Peripheral IV. Ordered by Vimal Schilling. VERSED 06/23/2018 2:42:08 PM 1 mg Hesher, Maria Ines 1 mg VERSED given in lab by Maria Ines Joy RN in Right Antecubital via Peripheral IV. Ordered by Vimal Turner. FENTANYL 06/23/2018 2:43:02 PM 25 mcg Hesher, Maria Ines 25 mcg FENTANYL given in lab by Maria Ines Joy RN in Right Antecubital via Peripheral IV. Ordered by Vimal Schilling. 1% XYLOCAINE 06/23/2018 2:45:03 PM 20 mL Susi Chin 20 mL 1% XYLOCAINE given in lab by Susi Chin RCIS TECH2 in Right Groin via Subcutaneous. Ordered by Vimal Schilling. VERSED 06/23/2018 2:50:19 PM 1 mg Hesher, Maria Ines 1 mg VERSED given in lab by Maria Ines Joy RN in Right Antecubital via Peripheral IV. Ordered by Vimal Turner. FENTANYL 06/23/2018 2:54:58 PM 25 mcg Hesher, Maria Ines 25 mcg FENTANYL given in lab by Maria Ines Joy RN in Right Antecubital via Peripheral IV. Ordered by Vimal Schilling. Medication (Drip) Medication Time Given Dosage/Unit Concentration/Unit Diluent (ml) Solutio n IV Solutions 06/23/2018 2:21:22 PM 0 mL (IV) 500 NaCl .9 Patient arrived on IV Solutions given by cathlab cathkeri in Left Antecubital via Peripheral IV. Pump /Drip Flow = 20 ml/hr using NaCl .9. Ordered by Vimal Schilling. Initial Case Assessment Cardiovascular HR Rhythm NIBP Chest Pain 64 nsr 144/91 0 Edema Present Skin color Skin None Normal Warm Dry Circulatory - Right Pulses Dorsalis Pedis Femoral 2 2 Scale (0,1,2,3,4,d) Circulatory - Left Pulses Dorsalis Pedis Femoral 2 2 Scale (0,1,2,3,4,d) Neurological State Oriented to time-place- Alert Moves all extremities person Respiration - General Respiration Rate SpO2 (%) (B/min) 15 100 Final Case Assessment Cardiovascular HR Rhythm NIBP Chest Pain 64 nsr 121/81 0 Edema Present Skin color Skin None Normal Warm Dry Circulatory - Right Pulses Dorsalis Pedis Femoral 2 2 Scale (0,1,2,3,4,d) Circulatory - Left Pulses Dorsalis Pedis Femoral 2 2 Scale (0,1,2,3,4,d) Neurological State Oriented to time-place- Alert Moves all extremities person Respiration - General Respiration Rate SpO2 (%) (B/min) 15 100 Chronological Log Time Study Chronological Log 14:16:33 Patient arrived via Bed. 14:16:36 Patient Name, D.O.B, / Armband Verified By R.N. 14:16:39 Consent signed by the physician and the patient and verified by the [employer] staff. 14:20:42 Pre-op and post- op instructions given; patient acknowledges understanding of instructions. 14:20:44 Presedation assessment performed by [employer]age RN. 14:20:45 Immediate Presedation assesment performed by physician. 14:20:46 Patient has been NPO for More than 6Hrs. 14:20:46 Skin Breakdown- none per patient 14:21:12 Patient Warmer Placed on the Table. 14:21:13 Taya Prominences Protected 14:21:14 A # 20 IV was noted in the Antecubital (left). Grade = 0 Patient arrived on IV Solutions given by cathlab, cathlab in Left Antecubital via Peripheral IV . Pump/Drip Flow = 20 14:21:22 ml/hr using NaCl .9. Ordered by Vimal Schilling. 14:21:38 History and physical on the chart or being dictated. Vitals capture started with the following parameters, Patient=Adult, Interval=5 min, Initial Pr lkpnyx=601 mmHg, 14:21:40 Deflation Rate=5 mmHg, Cuff placed on Right Arm Assessment: Initial Case, HR=64 BPM, Rhythm=nsr, RXNA=719/91 mmhg, Chest Pain=0, Edema=None, Co robbin=Normal, Skin = Warm, Dry Right Pulses: Ruiz Ped=2, Femoral=2 14:21:41 Left Pulses: Ruiz Ped=2, Femoral=2 Neurological: State=Alert, Ox3, MARTINEZ Respiration: Resp=15 B/min, GjR4=374 % 14:21:54 Reference ECG taken 14:22:19 HR=62 bpm, YAEY=622/91 mmhg, XlG7=198.0 %, Resp=14 B/min, Pain=0, Saira=10, Torres=2 14:27:18 HR=62 bpm, TWDY=645/89 mmhg, SpO2=98 %, Resp=13 B/min, Pain=0, Siara=10, Torres=2 14:27:26 Bilateral groins prepped with 2% chlorhexidine, and draped after a 3 minute waiting time. 14:31:04 2 mg VERSED given in lab by Maria Ines Joy RN in Right Antecubital via Peripheral IV. Orde red by Vimal Schilling. 50 mcg FENTANYL given in lab by Maria Ines Joy RN in Right Antecubital via Peripheral IV. Orde red by Shakir, 14:32:12 Vimal. 14:32:15 HR=62 bpm, FHXT=073/91 mmhg, SpO2=99 %, Resp=18 B/min, Pain=0, Saira=10, Torres=2 14:36:26 Pressure channel 1 zeroed. 14:37:18 HR=64 bpm, OMNX=054/92 mmhg, SpO2=97.0 %, Resp=12 B/min, Pain=0, Saira=10, Torres=2 14:39:40 MD paged 14:42:08 1 mg VERSED given in lab by Maria Ines Joy RN in Right Antecubital via Peripheral IV. Orde red by Vimal Schilling. 14:42:19 HR=64 bpm, IRID=099/86 mmhg, SpO2=91.0 %, Resp=14 B/min 25 mcg FENTANYL given in lab by Maria Ines Joy RN in Right Antecubital via Peripheral IV. Orde red by Shakir, 14:43:02 Vimal. 14:44:55 MD arrived. 14:45:00 Case Start 20 mL 1% XYLOCAINE given in lab by Susi Chin RCIS TECH2 in Right Groin via Subcutaneous. Or dered by Shakir, 14:45:03 Vimal. 14:47:18 HR=62 bpm, DRRV=792/82 mmhg, SpO2=95.0 %, Resp=15 B/min, Pain=0, Saira=10, Torres=2 14:50:19 1 mg VERSED given in lab by Maria Ines Joy RN in Right Antecubital via Peripheral IV. Orde red by Vimal Schilling. 14:51:10 Access site was Right Femoral Artery. 14:51:16 A SHEATH, FR5 TERUMO (10CM) FR 5 was advanced into the Fem Art (right) using the Percutaneo us technique. A PIGTAIL ANG. INFINITI CATHETER FR 5 was advanced over a wire. OMNIPAQUE, 350 MG, 150ML 150ML was used 14:51:58 for injections. 14:52:17 HR=57 bpm, AYOU=941/81 mmhg, SpO2=96.0 %, Resp=15 B/min, Pain=0, Saira=10, Torres=2 Recorded Pressure: LV, HR=50, Condition=Condition 1 14:53:27 (Left Ventricle) LV 109/8/10 14:53:51 The LV was injected at 10 cc/sec for a total of 30. OMNIPAQUE, 350 MG, 50ML 50ML used. Recorded Pressure: LV, Ao, HR=67, Condition=Condition 1 14:54:50 (Left Ventricle) LV 124/-4/11, (Aorta) Ao 113/66/87 25 mcg FENTANYL given in lab by Maria Ines Joy RN in Right Antecubital via Peripheral IV. Orde red by Shakir, 14:54:58 Vimal. 14:55:06 Catheter was removed A JL 4.0 INFINITI CATHETER FR 5 was advanced over a wire. OMNIPAQUE, 350 MG, 150ML 150ML was us ed for 14:55:09 injections. Recorded Pressure: Ao, HR=64, Condition=Condition 1 14:56:21 (Aorta) Ao 127/76/98 14:56:31 The LCA was injected and visualized at various angles. OMNIPAQUE, 350 MG, 150ML 150ML used . 14:57:16 HR=63 bpm, PHZU=484/81 mmhg, SpO2=96 %, Resp=15 B/min, Pain=0, Saira=10, Torres=2 14:57:43 Catheter was removed A AR MOD INFINITI CATHETER FR 5 was advanced over a wire. OMNIPAQUE, 350 MG, 150ML 150ML was u sed for 14:57:44 injections. 14:58:47 The RCA was injected and visualized at various angles. OMNIPAQUE, 350 MG, 150ML 150ML use d. 14:59:28 Catheter was removed 14:59:46 Case End (Physician broke scrub) Assessment: Final Case, HR=64 BPM, Rhythm=nsr, FOKT=048/81 mmhg, Chest Pain=0, Edema=None, Col or=Normal, Skin = Warm, Dry Right Pulses: Ruiz Ped=2, Femoral=2 15:00:14 Left Pulses: Ruiz Ped=2, Femoral=2 Neurological: State=Alert, Ox3, MARTINEZ Respiration: Resp=15 B/min, FkV3=653 % 15:00:50 Catheter(s) removed without difficulty 15:00:56 An injection in the Fem Art (right) was made through the SHEATH, FR5 TERUMO (10CM) FR 5. 15:01:22 No case complications noted. 15:01:22 Cine recording checked. 15:01:25 Bedside Report will be given. 15:01:27 A Left Heart Cath was performed. 15:02:17 HR=64 bpm, HOZJ=527/75 mmhg, SpO2=98 %, Resp=10 B/min, Pain=0, Saira=10, Torres=2 15:02:43 VASCADE, FR5 CLOSURE SYSTEM FR 5 placement in the Fem Art (right) 15:07:14 HR=74 bpm, CZUS=700/92 mmhg, SpO2=98.0 %, Resp=15 B/min 15:10:53 Sterile dressing applied to site 15:10:55 Vitals capture stopped. 15:10:56 Patient moved to [facility] End Study - Contrast Media Used In Study Contrast Total Opened (mL) Total Used (mL) Total Wasted (mL) Omnipaque 350 80 80 0 End Study - Maximum Contrast Load Max Contrast Load (mL) 424.2 End Study - Radiation Exposure Fluoro Time Fluoro Dose (mGy) Cine Dose (uGym2) (minutes) 1.0 380 2480 End Study - Patient Disposition Complications Transferred To Interventional Outcome No [employer] Holding No attempt made
--- NOTE | 2018-06-23 16:00 | P.DS ---
DS: Providers Date of admission: 06/20/18 14:27 Primary care physician: No Primary Care Physician Patient is a 52 year old male with no significant pmhx who presented to the ED for chest pain. while hospitalized troponin levels were negative but during a treadmill exam patient reported symptom recurrence. Cardiology was consulted for evaluation and on 06/23 patient had a cath which was negative for acute issue. Patient on presentation was hypertensive and started on metoprolol 25mg BID with stablization in blood pressure. Patient clinically stable for discharge with planned pmd folow up. suspect patients symptoms are result of elevated blood pressure which will be managed medically with medications. Consults: 06/20/18 18:50 Consult to Cardiology Routine Consulting Provider: Vimal Schilling Does the patient have a Screen Printing Cloth Spreader who follows them?: No Preferred Nipple Maker:: Brick Tester Physician Reason for Consultation: chest pain during cardiac stress testing which quickly resolved with rest Notified:: Service Spoke with:: Leila Date Notified:: 06/20/18 Time Notified:: 19:02 Ordering Provider: KT 06/21/18 10:11 Consult to Hospitalist Routine Consulting Provider: Biju Juan Reason for Consultation: medical management, cardiology consult, possible cardiac catheterization Notified:: Service Spoke with:: florentino Date Notified:: 06/21/18 Time Notified:: 10:44 Ordering Provider: KT Brief History from admission: 52 year old male without significant medical history presents to ER for further evaluation of exertional chest pain. Onset few months. Reporting episodes are becoming more frequent and intense over the last 2 weeks. Location left anterior chest with radiation to left shoulder. Characterized as a tight, squeezing sensation. Associated symptoms include dyspnea. No associated symptoms of nausea, vomiting, or diaphoresis. Precipitating factors seem to be related to exertion. Duration often last hours, sometimes lasting all day. No relieving factors. No recent illness, fever, or injury. A family member encouraged him to go to local fire station to have blood pressure checked. Reports blood pressure taken by EMT was 220/100 and was encouraged to go to ER for further evaluation. Past cardiac testing None Social history No known hypertension, hyperlipidemia, or diabetes. Lifelong non-smoker. No alcohol or recreational drug use. Family history Noncontributory for early onset cardiovascular disease. Brother required valve replacement due to endocarditis. Father age 49 cerebral aneurysm DS: Diagnosis Discharge Diagnosis (1) Chest pain: Status: Acute (2) Hypertension: Status: Acute (3) Unstable angina: Status: Acute (4) History of depression: Status: Chronic (5) Abnormal stress ECG with treadmill: Status: Acute DS: Summary Patient is a 52 year old male with no significant pmhx who presented to the ED for chest pain. while hospitalized troponin levels were negative but during a treadmill exam patient reported symptom recurrence. Cardiology was consulted for evaluation and on 06/23 patient had a cath which was negative for acute issue. Patient on presentation was hypertensive and started on metoprolol 25mg BID with stablization in blood pressure. Patient clinically stable for discharge with planned pmd folow up. suspect patients symptoms are result of elevated blood pressure which will be managed medically with medications. Time Spent with Patient Total time spent providing and/or coordinating discharge services: > 45 min Quality: VTE Deep Vein Thrombosis/Pulmonary Embolism Present on Admission: No Results Labs on day of discharge: Labs from last 24 hours 06/23/18 06/23/18 06/23/18 06:14 06:14 06:14 WBC 5.3 RBC 4.82 Hgb 15.6 Hct 45.5 MCV 94.3 MCH 32.4 MCHC 34.3 RDW 13.1 Plt Count 231 MPV 8.4 PT 10.4 INR 1.0 Sodium 141 Potassium 4.1 Chloride 104 Carbon Dioxide 33.3 H Anion Gap 4 L BUN 15 Creatinine 1.12 Estimated GFR 69 L Random Glucose 97 Calcium 8.9 Magnesium 2.2 Impressions ITS Impressions Chest X-Ray 06/20/18 13:17 CONCLUSION: Negative for acute process Discharge Plan Discharge Disposition Patient Disposition: 01 Discharge Home Discharge Condition Condition: Stable Discharge Order Discharge Orders: Discharge Order (Routine); Ordered 06/23/18 Ordered By: Biju Juan Discharge Details Discharge Comment: discharge only after completing bedrest post cath. minimum 3 hrs Physicians Team Primary Care Provider: Lisa Cuenca Attending Provider: Biju Juan Other Providers: Vimal Schilling ; Biju Juan Rxs /Orders / Referrals /Forms Prescriptions: New metoprolol tartrate 25 mg Tablet 25 mg PO BID 30 Days Qty: 60 RF: 0 Continue gabapentin 300 mg Capsule 300 mg PO BID RF: 0 aspirin 81 mg Tablet,Chewable 81 mg PO BID RF: 0 Referrals: Primary Care Lisa Angel [Primary Care Provider] - See Instructions ([facility] [phone] [facility] [phone]) Discharge Instructions Patient Printed Instructions: Chest Pain (ED), Heart Healthy Diet (DC), Cigarette Smoking and Your Health (GEN), Preventing Infections (GEN), How To Wash Your Hands (DC), Heart Catheterization (DC) Additional Instructions: FOLLOW ALL DISCHARGE INSTRUCTIONS. CONTINUE ALL PREVIOUSLY PRESCRIBED MEDICATIONS. CALL FOR FOLLOW UP APPOINTMENT. RETURN TO ER FOR ANY NEW OR ACUTE SYMPTOMS. KEEP STENT CARD IN WALLET AT ALL TIMES KEEP SEAL CARD IN WALLET FOR 90 DAYS Discharge Interventions Interventions: Discharge Planning - Case Management Last Done: 06/22/18 15:41 Status ED Status: Left Department
[2018-06-23 16:03] VITALS: O2SAT 99
--- NOTE | 2018-06-23 16:48 | MA ---
cc: Vimal Schilling MD DATE: 06/23/2018 INDICATION: New onset angina, class III angina; intermediate probability exercise treadmill test. PROCEDURE PERFORMED: 1. Retrograde left heart catheterization with left ventriculography and selective coronary angiography. 2. Moderate sedation. ACCESS SITE: Right femoral artery. EQUIPMENT USED: A 5-Luxembourgish pigtail catheter and 5-Luxembourgish JL4 and AR modified coronary catheters. PREMEDICATION: Versed IV, fentanyl IV. CONTRAST: Omnipaque 60 mL COMPLICATIONS: None. ESTIMATED BLOOD LOSS: Less than 10 mL. METHOD OF HEMOSTASIS: Manual compression. RESULTS: A. HEMODYNAMICS: Heart rate 68 beats per minute, LV end-diastolic pressure 11 mmHg; left ventricle 125/11, aorta 125/76/98 beats. B. Ejection fraction 60%, wall motion normal. No mitral regurgitation C. CORONARY ANGIOGRAPHY: The left main coronary artery is patent; left anterior descending artery patent; D1 patent; left circumflex artery patent; OM1 patent. Ramus intermedius patent. Right coronary artery is a dominant vessel which is patent; PDA patent, PLV patent. DIAGNOSES: 1. Widely patent coronary arteries. 2. Normal left ventricular systolic function. DISPOSITION: Mr. Romo he can be reassured about his cardiac status. His study revealed widely patent coronary arteries and preserved left ventricular systolic function. His chest pain was likely of noncardiac origin. His exercise treadmill test was falsely abnormal. He can be discharged home later today. He should follow up with his primary physician after discharge. Vimal Schilling MD OZack/gold/ama , 03:08 PM , 03:13 PM MTDChapo
== END 2018-06-23 17:30 | disposition home or self-care (01) ==
LOC: NEPE 12:51 → NEDA 12:51 → NEPGCP 16:26 → HCIS 06-23 15:09
PROVIDERS: ADMIT Internal Medicine; ATTEND Internal Medicine